=== PATIENT | male | born 1995 | race Caucasian/White ===

== ENCOUNTER 2023-07-15 15:54 | Emergency (ER) | payer OTHER, SELFPAY ==
[2023-07-15 16:36] VITALS: BP 119/75; PULSE 87; RESP 20; TEMP 36.9; O2SAT 99; BMI 26.6
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
[2023-07-15 19:32] VITALS: TEMP 36.9
[2023-07-15] MEDS: ACETAMINOPHEN 500 MG TABLET 1000 MG PO (19:32)
[2023-07-15 20:36] VITALS: BP 115/74; PULSE 79; RESP 20; TEMP 36.7; O2SAT 99
[2023-07-15 21:44] VITALS: BP 115/74; PULSE 79; RESP 20; TEMP 36.7
== END 2023-07-15 21:45 | disposition home or self-care (01) ==
PROVIDERS: Emergency Provider Family Medicine
DX: S16.1XXA Strain of muscle, fascia and tendon at neck level, initial encounter (principal); S69.92XA Unspecified injury of left wrist, hand and finger(s), initial encounter; Y04.2XXA Assault by strike against or bumped into by another person, initial encounter
CPT/HCPCS: 72125; 73140; 99283; 99284; A9270